=== PATIENT | female | born 1990 | race Caucasian/White ===

== ENCOUNTER 2018-07-19 10:02 | Emergency (ER) | payer OTHER, SELFPAY ==
--- OUTSIDE RECORDS SUMMARY | 2018-07-19 10:04 | XMS REPORT ---
:1990 [facility] Address [address] [place] [address] Dr. Graves [address] [place] [id number] Care Team Providers Name Role Phone Unavailable Unavailable Unavailable Problems This patient has no known problems. Allergies, Adverse Reactions, Alerts This patient has no known allergies or adverse reactions. Medications This patient has no known medications.
[2018-07-19 10:48] LABS: Absolute Lymphocytes (CBC) 2.1 K/uL (0.7-4.9); Absolute Monocytes 0.6 K/uL (0.1-1.3); Basophils % 0.6 % (0-1.3); Eosinophils % 2.9 % (0-4.4); Hematocrit 42.7 % (36.0-45.0); Lymphocytes % 26.7 % (15.3-44.8); MPV 7.9 fL (7.6-11.3); Monocytes % 7.4 % (3.3-12.3); RBC Red Blood Cell Count 4.66 M/uL (3.86-4.86)
[2018-07-19] MEDS ORDERED: NA CHLORIDE 0.9% 1,000 ML ONE ×2 (10:49→11:43)
[2018-07-19] MEDS ORDERED: ONDANSETRON 4 MG/2 ML VIAL ONE (11:00)
[2018-07-19 11:15] LABS: ALT/SGPT 26 U/L (12-78); AST/SGOT 14 U/L (15-37); Alkaline Phosphatase 72 U/L (45-117); BUN Blood Urea Nitrogen 17 mg/dL (7-18); Bicarbonate 27 mmol/L (21-32); Bilirubin Direct < 0.1 mg/dL (0-0.2); Bilirubin Total 0.3 mg/dL (0.2-1.0); Glucose Level 101 mg/dL (74-106); Lipase 132 U/L (73-393); Potassium 4.3 mmol/L (3.5-5.1); Protein, Total 7.3 g/dL (6.4-8.2); Sodium Level 140 mmol/L (136-145)
--- NOTE | 2018-07-19 12:09 | ER ---
Nurse's Notes [facility] Name: Sirena Miller Age: 27 yrs Sex: Female : 1990 Arrival Date: 07/19/2018 Time: 10:04 Bed 6 Private MD: Diagnosis: Vomiting;Diarrhea, unspecified Presentation: 07/19 10:09 Presenting complaint: Patient states: For the past 2 weeks I have had vomiting and la1 diarrhea. Pt reports vomiting 1 or 2 times per day and about 6 episodes of diarrhea a day. Pt reports BP at home was low (80d/40s). Transition of care: patient was not received from another setting of care. Onset of symptoms was July 19, 2018. Risk Assessment: Do you want to hurt yourself or someone else? Patient reports no desire to harm self or others. Initial Sepsis Screen: Does the patient meet any 2 criteria? No. Patient's initial sepsis screen is negative. Does the patient have a suspected source of infection? No. Patient's initial sepsis screen is negative. Care prior to arrival: None. 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 - Social history:: Smoking status: Patient uses tobacco products, smokes one pack cigarettes per day. - Ebola Screening: : No symptoms or risks identified at this time. Screenin:20 Abuse screen: Denies threats or abuse. Nutritional screening: No deficits noted. aa5 Tuberculosis screening: No symptoms or risk factors identified. Fall Risk None identified. Assessment: 10:30 General: Appears comfortable, Behavior is calm, cooperative. Pain: Complains of pain in aa5 left lower quadrant Pain radiates to lower back Pain currently is 5 out of 10 on a pain scale. Quality of pain is described as sharp, Pain began 2-3 days ago. Is continuous. Neuro: Level of Consciousness is awake, alert, obeys commands, Oriented to person, place, time, situation. Cardiovascular: Heart tones S1 S2 present Rhythm is regular. Respiratory: Airway is patent Respiratory effort is even, unlabored, Respiratory pattern is regular, symmetrical, Breath sounds are clear bilaterally. GI: Abdomen is flat, non-distended, Bowel sounds present X 4 quads. Abd is soft and non tender X 4 quads. Reports diarrhea, bloody stool, nausea, vomiting. : No signs and/or symptoms were reported regarding the genitourinary system. EENT: No signs and/or symptoms were reported regarding the EENT system. Derm: Skin is pink, warm \T\ dry. Musculoskeletal: Range of motion: intact in all extremities. 10:45 Reassessment: Pt notified of wait time for lab results, pt verbalized understanding. Pt aa5 requesting nausea medication at this time, CYBER DEFENSE FORENSICS ANALYST was notified. . 10:56 Reassessment: Patient is alert, oriented x 3, equal unlabored respirations, skin aa5 warm/dry/pink. Pt sitting up in bed. Bed in low position, side rail x 1, call ocampo within reach . 11:25 Reassessment: CYBER DEFENSE FORENSICS ANALYST at bedside discussing lab results and plan of care with patient at aa5 this time. . 11:35 Reassessment: Patient is alert, oriented x 3, equal unlabored respirations, skin aa5 warm/dry/pink. 2nd NS bolus infusing at this time. CYBER DEFENSE FORENSICS ANALYST states pt will be d/c'd home after 2nd NS bolus, pt notified and verbalized understanding. Pt sitting up in bed, eating chips, pt tolerating well. . Vital Signs: 10:12 BP 112 / 75; Pulse 85; Resp 18; Temp 97.7; Pulse Ox 98% on R/A; Weight 54.43 kg; Height la1 5 ft. 3 in. (160.02 cm); 10:50 BP 113 / 60 Supine; Pulse 54; Resp 16 S; Pulse Ox 100% on R/A; aa5 10:52 BP 112 / 68 Sitting; Pulse 56; aa5 10:54 BP 116 / 70 Standing; Pulse 62; aa5 12:16 BP 115 / 69; Pulse 63; Resp 16 S; Pulse Ox 100% on R/A; jl7 10:12 Body Mass Index 21.26 (54.43 kg, 160.02 cm) la1 10:54 Pt denied any dizziness during orthostatics, NS bolus paused during orthostatics, CYBER DEFENSE FORENSICS ANALYST aa5 notified of orthostatics. ED Course: 10:04 Patient arrived in ED. as 10:11 Triage completed. la1 10:12 Arm band placed on left wrist. la1 10:12 Patient has correct armband on for positive identification. Placed in gown. Bed in low aa5 position. Call light in reach. Side rails up X2. 10:14 Garret Looney NP is PHCP. pm1 10:14 Ney Conteh MD is Attending Physician. pm1 10:14 Ines Lopez RN is Primary Nurse. aa5 10:30 Urine collected: clean catch specimen, cloudy, derrick colored. jb1 10:35 Initial lab(s) drawn, by me, sent to lab. Inserted saline lock: 20 gauge in left aa5 antecubital area, using aseptic technique. Blood collected. 10:47 No provider procedures requiring assistance completed. aa5 12:16 IV discontinued, intact, bleeding controlled, No redness/swelling at site. Pressure jl7 dressing applied. Administered Medications: 10:44 Drug: NS 0.9% 1000 ml Route: IV; Rate: 1000 ml; Site: left antecubital; aa5 11:33 Follow up: IV Status: Completed infusion; IV Intake: 1000ml aa5 10:48 Drug: Zofran 4 mg Route: IVP; Site: left antecubital; aa5 10:56 Follow up: Response: No adverse reaction aa5 11:33 Drug: NS 0.9% 1000 ml Route: IV; Rate: 1000 ml; Site: left antecubital; aa5 12:09 Follow up: IV Status: Completed infusion; IV Intake: 1000ml aa5 Intake: 11:33 IV: 1000ml; Total: 1000ml. aa5 12:09 IV: 1000ml; Total: 2000ml. aa5 Outcome: 12:09 Discharge ordered by . pm1 12:16 Discharged to home ambulatory. jl7 12:16 Condition: stable 12:16 Discharge instructions given to patient, Instructed on discharge instructions, follow up and referral plans. medication usage, Demonstrated understanding of instructions, follow-up care, medications, Prescriptions given X 2. 12:18 Patient left the ED. jl7 Signatures: Rodolfo Pastor jb1 Anna Hoffman Audri, RN RN aa5 Boyd Bowman RN RN la1 Garret Looney NP CYBER DEFENSE FORENSICS ANALYST pm1 Jordan Dickens, RN RN jl7 Corrections: (The following items were deleted from the chart) 10:58 10:30 Pain: Complains of pain in left lower quadrant Pain radiates to lower back Pain aa5 currently is 8 out of 10 on a pain scale. Quality of pain is described as sharp, Pain began 2-3 days ago. Is continuous, aa5
--- NOTE | 2018-07-19 12:09 | EDPHYS ---
Physician Documentation [facility] Name: Sirena Miller Age: 27 yrs Sex: Female : 1990 Arrival Date: 07/19/2018 Time: 10:04 Bed 6 Private MD: ED Physician Ney Conteh HPI: 07/19 10:54 This 27 yrs old Female presents to ER via Ambulatory with complaints of pm1 Vomiting/Diarrhea. 10:54 The patient presents to the emergency department with nausea, vomiting, 1-2 times per pm1 day, diarrhea, 6 times per day. Onset: The symptoms/episode began/occurred 2 week(s) ago. Possible causes: unknown. The symptoms are aggravated by nothing. The symptoms are alleviated by nothing. Associated signs and symptoms: Pertinent positives: Abdominal cramping, Pertinent negatives: constipation, dysuria, fever. Severity of symptoms: in the emergency department the symptoms are unchanged. The patient has not experienced similar symptoms in the past. The patient has not recently seen a physician. 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 - Social history:: Smoking status: Patient uses tobacco products, smokes one pack cigarettes per day. - Ebola Screening: : No symptoms or risks identified at this time. ROS: 10:54 Constitutional: Negative for fever, chills, and weight loss, Eyes: Negative for injury, pm1 pain, redness, and discharge, ENT: Negative for injury, pain, and discharge, Neck: Negative for injury, pain, and swelling, Cardiovascular: Negative for chest pain, palpitations, and edema, Respiratory: Negative for shortness of breath, cough, wheezing, and pleuritic chest pain. 10:54 Back: Negative for injury and pain, : Negative for injury, bleeding, discharge, and swelling, MS/Extremity: Negative for injury and deformity, Skin: Negative for injury, rash, and discoloration, Neuro: Negative for headache, weakness, numbness, tingling, and seizure. 10:54 Abdomen/GI: Positive for nausea, vomiting, and diarrhea, abdominal cramps, Negative for hematemesis, black/tarry stool, rectal bleeding. Exam: 10:54 Constitutional: This is a well developed, well nourished patient who is awake, alert, pm1 and in no acute distress. Head/Face: Normocephalic, atraumatic. Eyes: Pupils equal round and reactive to light, extra-ocular motions intact. Lids and lashes normal. Conjunctiva and sclera are non-icteric and not injected. Cornea within normal limits. Periorbital areas with no swelling, redness, or edema. ENT: Nares patent. No nasal discharge, no septal abnormalities noted. Tympanic membranes are normal and external auditory canals are clear. Oropharynx with no redness, swelling, or masses, exudates, or evidence of obstruction, uvula midline. Mucous membranes moist. Neck: Trachea midline, no thyromegaly or masses palpated, and no cervical lymphadenopathy. Supple, full range of motion without nuchal rigidity, or vertebral point tenderness. No Meningismus. Chest/axilla: Normal chest wall appearance and motion. Nontender with no deformity. No lesions are appreciated. Cardiovascular: Regular rate and rhythm with a normal S1 and S2. No gallops, murmurs, or rubs. Normal PMI, no JVD. No pulse deficits. Respiratory: Lungs have equal breath sounds bilaterally, clear to auscultation and percussion. No rales, rhonchi or wheezes noted. No increased work of breathing, no retractions or nasal flaring. 10:54 Back: No spinal tenderness. No costovertebral tenderness. Full range of motion. Skin: Warm, dry with normal turgor. Normal color with no rashes, no lesions, and no evidence of cellulitis. MS/ Extremity: Pulses equal, no cyanosis. Neurovascular intact. Full, normal range of motion. 10:54 Abdomen/GI: Inspection: abdomen appears normal, Bowel sounds: normal, Palpation: abdomen is soft and non-tender, in all quadrants, mass, is not appreciated, rebound tenderness, is not appreciated. 10:54 Neuro: Orientation: is normal, Motor: is normal, moves all fours. Vital Signs: 10:12 BP 112 / 75; Pulse 85; Resp 18; Temp 97.7; Pulse Ox 98% on R/A; Weight 54.43 kg; Height la1 5 ft. 3 in. (160.02 cm); 10:50 BP 113 / 60 Supine; Pulse 54; Resp 16 S; Pulse Ox 100% on R/A; aa5 10:52 BP 112 / 68 Sitting; Pulse 56; aa5 10:54 BP 116 / 70 Standing; Pulse 62; aa5 12:16 BP 115 / 69; Pulse 63; Resp 16 S; Pulse Ox 100% on R/A; jl7 10:12 Body Mass Index 21.26 (54.43 kg, 160.02 cm) la1 10:54 Pt denied any dizziness during orthostatics, NS bolus paused during orthostatics, HUMAN RESOURCES EXECUTIVE ASSISTANT aa5 notified of orthostatics. MDM: 10:21 Patient medically screened. pm1 10:54 Data reviewed: vital signs. Data interpreted: Pulse oximetry: on room air is 98 %. pm1 Interpretation: normal. 11:18 ED course: Patient's vital signs stable. Orthostatics within normal limits. pm1 11:26 Counseling: I had a detailed discussion with the patient and/or guardian regarding: the pm1 historical points, exam findings, and any diagnostic results supporting the discharge/admit diagnosis, lab results, the need for outpatient follow up, to return to the emergency department if symptoms worsen or persist or if there are any questions or concerns that arise at home. 11:29 ED course: Patient feels better after NS 1 liter infusion. Requested additional IV pm1 fluids. Patient is currently eating snack food without any difficulty. 07/19 10:31 Order name: Urine Dipstick--Ancillary (enter results) 07/19 10:31 Order name: Urine --Ancillary (enter results) 07/19 10:33 Order name: Basic Metabolic Panel; Complete Time: 11:18 pm07/19 10:33 Order name: CBC with Diff; Complete Time: 11:18 pm07/19 10:33 Order name: Creatinine for Radiology; Complete Time: 11:18 pm07/19 10:33 Order name: Hepatic Function; Complete Time: 11:18 pm07/19 10:33 Order name: Lipase; Complete Time: 11:18 pm07/19 10:33 Order name: IV Saline Lock; Complete Time: 10:44 pm1 07/19 10:33 Order name: Labs collected and sent; Complete Time: 10:44 pm1 03/03 10:33 Order name: Urine Dipstick-Ancillary (obtain specimen); Complete Time: 10:35 pm1 07/19 10:33 Order name: Urine Test (obtain specimen); Complete Time: 10:34 pm1 07/19 10:35 Order name: Orthostatic Blood Pressure; Complete Time: 10:56 pm1 Administered Medications: 10:44 Drug: NS 0.9% 1000 ml Route: IV; Rate: 1000 ml; Site: left antecubital; aa5 11:33 Follow up: IV Status: Completed infusion; IV Intake: 1000ml aa5 10:48 Drug: Zofran 4 mg Route: IVP; Site: left antecubital; aa5 10:56 Follow up: Response: No adverse reaction aa5 11:33 Drug: NS 0.9% 1000 ml Route: IV; Rate: 1000 ml; Site: left antecubital; aa5 12:09 Follow up: IV Status: Completed infusion; IV Intake: 1000ml aa5 Disposition: 17:09 Co-signature as Attending Physician, Ney Conteh MD. Disposition: 07/19/18 12:09 Discharged to Home. Impression: Vomiting, Diarrhea, unspecified. - Condition is Stable. - Discharge Instructions: Food Choices to Help Relieve Diarrhea, Adult, Diarrhea, Adult, Nausea and Vomiting, Adult, [id number]. - Prescriptions for Bentyl 20 mg Oral Tablet - take 1 tablet by ORAL route every 6 hours As needed; 20 tablet. Zofran 4 mg Oral Tablet - take 1 tablet by ORAL route every 12 hours As needed; 20 tablet. - Medication Reconciliation Form, Thank You Letter, Antibiotic Education, Prescription Opioid Use form. - Follow up: Emergency Department; When: As needed; Reason: Worsening of condition. Follow up: Private Physician; When: 2 - 3 days; Reason: Recheck today's complaints, Continuance of care, Re-evaluation by your physician. - Problem is new. - Symptoms have improved. Signatures: Dispatcher [employer] EDMS Ines Lopez RN RN aa5 Boyd Bowman RN RN la1 Garret Looney, HUMAN RESOURCES EXECUTIVE ASSISTANT HUMAN RESOURCES EXECUTIVE ASSISTANT pm1 Jordan Dickens RN RN jl7 Ney Conteh MD MD gs Corrections: (The following items were deleted from the chart) 12:18 12:09 07/19/2018 12:09 Discharged to Home. Impression: Vomiting; Diarrhea, unspecified. jl7 Condition is Stable. Discharge Instructions: Food Choices to Help Relieve Diarrhea, Adult, Diarrhea, Adult, Nausea and Vomiting, Adult, [id number]. Prescriptions for Bentyl 20 mg Oral Tablet - take 1 tablet by ORAL route every 6 hours As needed; 20 tablet, Zofran 4 mg Oral Tablet - take 1 tablet by ORAL route every 12 hours As needed; 20 tablet. and Forms are Medication Reconciliation Form, Thank You Letter, Antibiotic Education, Prescription Opioid Use. Follow up: Emergency Department; When: As needed; Reason: Worsening of condition. Follow up: Private Physician; When: 2 - 3 days; Reason: Recheck today's complaints, Continuance of care, Re-evaluation by your physician. Problem is new. Symptoms have improved. pm1
[2018-07-19 12:22] VITALS: TEMP 97.7
[2018-07-19 12:23] VITALS: O2SAT 100
[2018-07-19 12:26] VITALS: BP 115/69
[2018-07-19 13:32] LABS: Urine Blood 2+ (NEG); Urine Glucose NEGATIVE (NEG); Urine Protein NEGATIVE (NEG); Urine Specific Gravity 1.025 (1.005-1.030)
== END 2018-07-19 12:18 | disposition home or self-care (01) ==
LOC: ER 10:02
DX: R19.7 Diarrhea, unspecified (principal); F17.210 Nicotine dependence, cigarettes, uncomplicated; Z88.0 Allergy status to penicillin
CPT/HCPCS: 36415; 80048; 80076; 81003; 81025; 83690; 85025; 96361; 96374; 99284; J2405; J7030

== ENCOUNTER 2018-11-23 15:39 | Emergency (ER) | payer SELFPAY ==
--- OUTSIDE RECORDS SUMMARY | 2018-11-23 15:42 | XMS REPORT ---
:1990 [facility] Address [address] [place] [address] Dr. Graves [address] [place] [id number] Care Team Providers Name Role Phone Unavailable Unavailable Unavailable Problems This patient has no known problems. Allergies, Adverse Reactions, Alerts This patient has no known allergies or adverse reactions. Medications This patient has no known medications.
[2018-11-23 17:21] LABS: Urine Blood NEGATIVE (NEG); Urine Glucose NEGATIVE (NEG); Urine Protein NEGATIVE (NEG); Urine pH 6.5 (5.0-7.0)
[2018-11-23 17:30] LABS: Urine Bacteria <20 /HPF (<20); Urine Culture Reflex Order NOT NEEDED; Urine RBC <5 /HPF (NONE SEEN)
--- NOTE | 2018-11-23 17:31 | EDPHYS ---
Physician Documentation [facility] Name: Sirena Miller Age: 28 yrs Sex: Female : 1990 Arrival Date: 11/23/2018 Time: 15:48 Bed 27 Private MD: ED Physician Erwin Hadley HPI: 11/23 16:27 This 28 yrs old Female presents to ER via Ambulatory with complaints of jr8 Cough, Sore Throat. 16:27 The patient or guardian reports cough, that is intermittent, described as mild, with no jr8 sputum. Onset: The symptoms/episode began/occurred gradually, 3 day(s) ago. Severity of symptoms: At their worst the symptoms were mild. Modifying factors: The symptoms are alleviated by nothing, the symptoms are aggravated by nothing. Associated signs and symptoms: Pertinent positives: chest pain. The patient has not experienced similar symptoms in the past. The patient has not recently seen a physician. also complains of low back pain and frequent urination . 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 - Social history:: Smoking status: Patient uses tobacco products, smokes one-half pack cigarettes per day. - Ebola Screening: : No symptoms or risks identified at this time. ROS: 16:27 Eyes: Negative for injury, pain, redness, and discharge, Neck: Negative for injury, jr8 pain, and swelling, Abdomen/GI: Negative for abdominal pain, nausea, vomiting, diarrhea, and constipation, Back: Negative for injury and pain, MS/Extremity: Negative for injury and deformity, Skin: Negative for injury, rash, and discoloration, Neuro: Negative for headache, weakness, numbness, tingling, and seizure. 16:27 ENT: Positive for sore throat, Negative for drainage from ear(s), ear pain, rhinorrhea, sinus congestion, sinus pain, difficulty swallowing, difficulty handling secretions, hoarseness. 16:27 Cardiovascular: Positive for chest pain, with cough. 16:27 Respiratory: Positive for cough, with no reported sputum, Negative for shortness of breath, sputum production, wheezing. 16:27 : Positive for urinary symptoms. Exam: 16:27 Constitutional: This is a well developed, well nourished patient who is awake, alert, jr8 and in no acute distress. Eyes: Pupils equal round and reactive to light, extra-ocular motions intact. Lids and lashes normal. Conjunctiva and sclera are non-icteric and not injected. Cornea within normal limits. Periorbital areas with no swelling, redness, or edema. ENT: Nares patent. No nasal discharge, no septal abnormalities noted. Tympanic membranes are normal and external auditory canals are clear. Oropharynx with no redness, swelling, or masses, exudates, or evidence of obstruction, uvula midline. Mucous membranes moist. Neck: Trachea midline, no thyromegaly or masses palpated, and no cervical lymphadenopathy. Supple, full range of motion without nuchal rigidity, or vertebral point tenderness. No Meningismus. Chest/axilla: Normal chest wall appearance and motion. Nontender with no deformity. No lesions are appreciated. Cardiovascular: Regular rate and rhythm with a normal S1 and S2. No gallops, murmurs, or rubs. Normal PMI, no JVD. No pulse deficits. Respiratory: Lungs have equal breath sounds bilaterally, clear to auscultation and percussion. No rales, rhonchi or wheezes noted. No increased work of breathing, no retractions or nasal flaring. Abdomen/GI: Soft, non-tender, with normal bowel sounds. No distension or tympany. No guarding or rebound. No evidence of tenderness throughout. Back: No spinal tenderness. No costovertebral tenderness. Full range of motion. Skin: Warm, dry with normal turgor. Normal color with no rashes, no lesions, and no evidence of cellulitis. MS/ Extremity: Pulses equal, no cyanosis. Neurovascular intact. Full, normal range of motion. Neuro: Awake and alert, GCS 15, oriented to person, place, time, and situation. Cranial nerves II-XII grossly intact. Motor strength 5/5 in all extremities. Sensory grossly intact. Cerebellar exam normal. Normal gait. Vital Signs: 15:56 BP 119 / 65; Pulse 100; Resp 18; Temp 98.9(O); Pulse Ox 100% on R/A; Weight 54.43 kg aa5 (R); Height 5 ft. 4 in. (162.56 cm) (R); Pain 7/10; 17:35 BP 116 / 66; Pulse 96; Resp 16; Temp 98.5; Pulse Ox 100% ; rv 15:56 Body Mass Index 20.60 (54.43 kg, 162.56 cm) aa5 MDM: 16:13 Patient medically screened. jr8 17:30 Data reviewed: vital signs, nurses notes, lab test result(s), and as a result, I will jr8 discharge patient. Data interpreted: Pulse oximetry: on room air is 100 %. Interpretation: normal. Counseling: I had a detailed discussion with the patient and/or guardian regarding: the historical points, exam findings, and any diagnostic results supporting the discharge/admit diagnosis, lab results, the need for outpatient follow up, a family practitioner, to return to the emergency department if symptoms worsen or persist or if there are any questions or concerns that arise at home. 11/23 16:22 Order name: Urine Microscopic Only; Complete Time: 17:31 ss 11/23 16:33 Order name: Urine Dipstick--Ancillary (enter results); Complete Time: 17:29 em1 11/23 16:22 Order name: Urine Dipstick-Ancillary (obtain specimen); Complete Time: 16:31 ss 11/23 16:33 Order name: Urine --Ancillary (enter results); Complete Time: 17:29 em1 11/23 16:33 Order name: Urine Test (obtain specimen); Complete Time: 16:33 em1 Administered Medications: No medications were administered Disposition: 18:59 Co-signature as Attending Physician, Erwin Hadley MD Available for consultation at ps1 all times . Disposition: 11/23/18 17:30 Discharged to Home. Impression: Acute upper respiratory infection, unspecified. - Condition is Stable. - Discharge Instructions: Upper Respiratory Infection, Adult. - Prescriptions for Tessalon Perles 100 mg Oral Capsule - take 1 capsule by ORAL route every 8 hours As needed; 15 capsule. Medrol (Gerald) 4 mg Oral Tablets, Dose Pack - take 1 tablet by ORAL route as directed - follow package instructions; 1 packet. Guaifenesin AC 10- 100 mg/5 mL Oral Liquid - take 10 milliliter by ORAL route every 4 hours As needed; 240 milliliter. - Medication Reconciliation Form, Thank You Letter, Antibiotic Education, Prescription Opioid Use form. - Follow up: Private Physician; When: 5 - 6 days; Reason: Recheck today's complaints, Continuance of care, Re-evaluation by your physician. - Problem is new. - Symptoms have improved. Signatures: Dispatcher [employer] Jm Morse em1 Ines Lopez, RN RN aa5 Keyana Galicia RN RN ss Arley Godoy PA PA jr8 Erwin Hadley MD MD ps1 Vicente, Ronaldo, RN RN rv Corrections: (The following items were deleted from the chart) 17:36 17:30 11/23/2018 17:30 Discharged to Home. Impression: Acute upper respiratory rv infection, unspecified. Condition is Stable. Forms are Medication Reconciliation Form, Thank You Letter, Antibiotic Education, Prescription Opioid Use. Follow up: Private Physician; When: 5 - 6 days; Reason: Recheck today's complaints, Continuance of care, Re-evaluation by your physician. Problem is new. Symptoms have improved. jr8
--- NOTE | 2018-11-23 17:31 | ER ---
Nurse's Notes [facility] Name: Sirena Miller Age: 28 yrs Sex: Female : 1990 Arrival Date: 11/23/2018 Time: 15:48 Bed 27 Private MD: Diagnosis: Acute upper respiratory infection, unspecified Presentation: 11/23 15:54 Presenting complaint: Patient states: cough, sore throat, and headache that began 2-3 aa5 days ago. Transition of care: patient was not received from another setting of care. Onset of symptoms was November 2018. Risk Assessment: Do you want to hurt yourself or someone else? Patient reports no desire to harm self or others. Initial Sepsis Screen: Does the patient meet any 2 criteria? No. Patient's initial sepsis screen is negative. Does the patient have a suspected source of infection?. Care prior to arrival: None. 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 - Social history:: Smoking status: Patient uses tobacco products, smokes one-half pack cigarettes per day. - Ebola Screening: : No symptoms or risks identified at this time. Screenin:06 Abuse screen: Denies threats or abuse. Denies injuries from another. Nutritional rv screening: No deficits noted. Tuberculosis screening: No symptoms or risk factors identified. Fall Risk None identified. Assessment: 17:03 General: Appears in no apparent distress. comfortable, Behavior is calm, cooperative. rv Pain: Pain: Complains of pain in head. 17:05 Neuro: Level of Consciousness is awake, alert, obeys commands, Oriented to person, rv place, time, situation, Reports headache. Cardiovascular: Patient's skin is warm and dry. Respiratory: Airway is patent Respiratory effort is even, Breath sounds are clear bilaterally. GI: No signs and/or symptoms were reported involving the gastrointestinal system. : No signs and/or symptoms were reported regarding the genitourinary system. EENT: Throat is clear. Derm: Skin is intact. Musculoskeletal: No signs and/or symptoms reported regarding the musculoskeletal system. Vital Signs: 15:56 BP 119 / 65; Pulse 100; Resp 18; Temp 98.9(O); Pulse Ox 100% on R/A; Weight 54.43 kg aa5 (R); Height 5 ft. 4 in. (162.56 cm) (R); Pain 7/10; 17:35 BP 116 / 66; Pulse 96; Resp 16; Temp 98.5; Pulse Ox 100% ; rv 15:56 Body Mass Index 20.60 (54.43 kg, 162.56 cm) aa5 ED Course: 15:48 Patient arrived in ED. rg4 15:55 Triage completed. aa5 15:55 Arm band placed on. aa5 16:12 Scotty Johnson, MARJORIE is Primary Nurse. rv 16:13 Arley Godoy PA is PHCP. jr8 16:13 Erwin Hadley MD is Attending Physician. jr8 17:06 Patient has correct armband on for positive identification. Bed in low position. Call rv light in reach. Side rails up X 1. Pulse ox on. NIBP on. 17:35 No provider procedures requiring assistance completed. Patient did not have IV access rv during this emergency room visit. Administered Medications: No medications were administered Outcome: 17:30 Discharge ordered by . jr8 17:35 Discharged to home ambulatory. rv 17:35 Condition: good 17:35 Discharge instructions given to patient, Instructed on discharge instructions, follow up and referral plans. medication usage, Demonstrated understanding of instructions, follow-up care, medications, Prescriptions given X 3. 17:36 Patient left the ED. rv Signatures: Ines Lopez, RN RN aa5 Arley Godoy PA PA jr8 Anya Hinojosa rg4 Scotty Johnson, MARJORIE RN rv Corrections: (The following items were deleted from the chart) 17:06 17:03 Pain: rv rv
[2018-11-23 19:14] VITALS: BP 119/65; TEMP 98.9; O2SAT 100
== END 2018-11-23 17:36 | disposition home or self-care (01) ==
LOC: ER 15:39
DX: J06.9 Acute upper respiratory infection, unspecified (principal); J45.909 Unspecified asthma, uncomplicated; F17.210 Nicotine dependence, cigarettes, uncomplicated; Z88.0 Allergy status to penicillin
CPT/HCPCS: 81003; 81015; 81025; 99283

== ENCOUNTER 2019-06-05 12:33 | Emergency (ER) | payer SELFPAY ==
--- OUTSIDE RECORDS SUMMARY | 2019-06-05 12:35 | XMS REPORT ---
:1990 Author Organization [facility] Address [address] [place] [address] Dr. Graves [address] [place] [id number] Care Team Providers Name Role Phone Unavailable Unavailable Unavailable Problems This patient has no known problems. Allergies, Adverse Reactions, Alerts This patient has no known allergies or adverse reactions. Medications This patient has no known medications.
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
--- NOTE | 2019-06-05 14:00 | ER ---
Nurse's Notes [facility] Name: Sirena Miller Age: 28 yrs Sex: Female : 1990 Arrival Date: 06/05/2019 Time: 12:39 Bed 14 Private MD: Diagnosis: Influenza due to identified novel influenza A virus Presentation: 06/05 13:03 Presenting complaint: Patient states: Pressure in bilateral ears, sore throat, fever, jl7 took Tylenol at 1130. Transition of care: patient was not received from another setting of care. Onset of symptoms was June 05, 2019. Risk Assessment: Do you want to hurt yourself or someone else? Patient reports no desire to harm self or others. Patient reports desire/thoughts of hurting themselves or someone else. Provider notified. Initial Sepsis Screen: Does the patient meet any 2 criteria? No. Patient's initial sepsis screen is negative. Does the patient have a suspected source of infection? No. Patient's initial sepsis screen is negative. Care prior to arrival: Medication(s) given: Tylenol. 13:03 Method Of Arrival: Ambulatory [facility] 13:03 Acuity: AUREA 4 jl7 Triage Assessment: 13:06 General: Appears in no apparent distress. uncomfortable, Behavior is calm, cooperative, jl7 appropriate for age. Pain: Complains of pain in sore throat Pain currently is 7 out of 10 on a pain scale. EENT: Throat is clear is reddened. Neuro: Level of Consciousness is awake, alert, obeys commands, Oriented to person, place, time, situation. Cardiovascular: Patient's skin is warm and dry. Respiratory: Airway is patent Respiratory effort is even, unlabored, Respiratory pattern is regular, symmetrical. Derm: Skin is pink, warm \T\ dry. 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 - Social history:: Smoking status: Patient reports the use of cigarette tobacco products, smokes one pack cigarettes per day. - Ebola Screening: : No symptoms or risks identified at this time. Screenin:58 Abuse screen: Denies threats or abuse. Denies injuries from another. Nutritional iw screening: No deficits noted. Tuberculosis screening: No symptoms or risk factors identified. Fall Risk None identified. Assessment: 14:00 General: Appears in no apparent distress. comfortable, Behavior is calm, cooperative. iw General: Reports fever for feeling ill for fatigue for. Pain: Complains of pain in throat, body aches. Neuro: Level of Consciousness is awake, alert, obeys commands, Oriented to person, place, time, situation, Moves all extremities. Full function. Cardiovascular: Capillary refill Patient's skin is warm and dry. Respiratory: Respiratory effort is even, unlabored, Respiratory pattern is regular, symmetrical. Derm: Skin is intact, is healthy with good turgor. Musculoskeletal: Range of motion: intact in all extremities. Vital Signs: 13:06 BP 106 / 70; Pulse 89; Resp 19 S; Temp 98.4(O); Pulse Ox 96% on R/A; Weight 66.68 kg jl7 (R); Height 5 ft. 3 in. (160.02 cm) (R); Pain 7/10; 13:06 Body Mass Index 26.04 (66.68 kg, 160.02 cm) jl7 ED Course: 12:39 Patient arrived in ED. mr 12:39 Boyd Bowman F[facility]-C [facility]. la1 12:39 Devi Styles MD is Attending Physician. la1 13:03 Jordan Dickens RN is Primary Nurse. jl7 13:06 Triage completed. jl7 13:06 Arm band placed on right wrist. jl7 14:21 Primary Nurse role handed off by Jordan Dickens RN jl7 14:30 Patient has correct armband on for positive identification. iw 14:58 No provider procedures requiring assistance completed. Patient did not have IV access iw during this emergency room visit. 14:59 Kina Lynch, MARJORIE is Primary Nurse. iw Administered Medications: No medications were administered Outcome: 13:59 Discharge ordered by . la1 14:58 Discharged to home ambulatory, with family. iw 14:58 Condition: good 14:58 Discharge instructions given to patient, Instructed on discharge instructions, follow up and referral plans. Demonstrated understanding of instructions, follow-up care, medications, Prescriptions given X 1. 14:59 Patient left the ED. iw Signatures: Kimberly Lau Irene, RN RN iw Boyd Bowman, CHAIN REPAIRER-C CHAIN REPAIRER-Cla1 Jordan Dickens RN RN jl7
--- NOTE | 2019-06-05 14:00 | EDPHYS ---
Physician Documentation [facility] Name: Sirena Miller Age: 28 yrs Sex: Female : 1990 Arrival Date: 06/05/2019 Time: 12:39 Bed 14 Private MD: ED Physician Devi Styles HPI: 06/05 13:23 This 28 yrs old Female presents to ER via Ambulatory with complaints of Flu la1 Symptoms. 13:23 The patient reports fever, that was measured at 101 degrees Fahrenheit. Onset: The la1 symptoms/episode began/occurred this morning. Modifying factors: The patient has had contact with sick. Associated signs and symptoms: Pertinent positives: chills, earache, headache, myalgias. Severity of symptoms: At their worst the symptoms were mild. The patient has not experienced similar symptoms in the past. pt whole family recently had the flu. 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 - Social history:: Smoking status: Patient reports the use of cigarette tobacco products, smokes one pack cigarettes per day. - Ebola Screening: : No symptoms or risks identified at this time. ROS: 13:24 ENT: Negative for injury, pain, and discharge, Neck: Negative for injury, pain, and la1 swelling, Cardiovascular: Negative for chest pain, palpitations, and edema, Respiratory: Negative for shortness of breath, cough, wheezing, and pleuritic chest pain, Abdomen/GI: Negative for abdominal pain, nausea, vomiting, diarrhea, and constipation, Back: Negative for injury and pain, : Negative for injury, bleeding, discharge, and swelling, MS/Extremity: Negative for injury and deformity, Skin: Negative for injury, rash, and discoloration. 13:24 Constitutional: Positive for body aches, chills, fever, malaise. 13:24 Neuro: Positive for headache. Exam: 13:25 Constitutional: This is a well developed, well nourished patient who is awake, alert, la1 and in no acute distress. Head/Face: Normocephalic, atraumatic. Eyes: Pupils equal round and reactive to light, extra-ocular motions intact. ENT: Nares patent. No nasal discharge, no septal abnormalities noted. Tympanic membranes are normal and external auditory canals are clear. Oropharynx with no redness, swelling, or masses, exudates, or evidence of obstruction, uvula midline. Mucous membranes moist. Neck: Trachea midline. No Meningismus. Chest/axilla: Normal chest wall appearance and motion. Nontender with no deformity. No lesions are appreciated. Cardiovascular: Regular rate and rhythm with a normal S1 and S2. Respiratory: Lungs have equal breath sounds bilaterally, clear to auscultation No rales, rhonchi or wheezes noted. No increased work of breathing, no retractions or nasal flaring. Abdomen/GI: Soft, non-tender, with normal bowel sounds. No distension or tympany. No guarding or rebound. No evidence of tenderness throughout. Back: No spinal tenderness. No costovertebral tenderness. Full range of motion. Skin: Warm, dry with normal turgor. Normal color with no rashes, no lesions, and no evidence of cellulitis. MS/ Extremity: Pulses equal, no cyanosis. Neurovascular intact. Full, normal range of motion. Neuro: Awake and alert, GCS 15, oriented to person, place, time, and situation. Normal gait. Vital Signs: 13:06 BP 106 / 70; Pulse 89; Resp 19 S; Temp 98.4(O); Pulse Ox 96% on R/A; Weight 66.68 kg jl7 (R); Height 5 ft. 3 in. (160.02 cm) (R); Pain 7/10; 13:06 Body Mass Index 26.04 (66.68 kg, 160.02 cm) jl7 MDM: 13:07 Patient medically screened. la1 13:58 Data reviewed: vital signs, nurses notes, lab test result(s), and as a result, I will la1 discharge patient. Data interpreted: Pulse oximetry: on room air is 96 %. Interpretation: normal. Test interpretation: by ED physician or midlevel provider:. Counseling: I had a detailed discussion with the patient and/or guardian regarding: the historical points, exam findings, and any diagnostic results supporting the discharge/admit diagnosis, lab results, the need for outpatient follow up, a family practitioner. 06/05 13:08 Order name: Flu; Complete Time: 13:55 [facility] 06/05 13:08 Order name: Strep [facility] 06/05 13:55 Order name: Throat Culture EDMS Administered Medications: No medications were administered Disposition: 15:25 Co-signature as Attending Physician, Devi Styles MD. ma2 Disposition: 06/05/19 13:59 Discharged to Home. Impression: Influenza due to identified novel influenza A virus. - Condition is Stable. - Discharge Instructions: Fever, Adult, Influenza, Adult. - Prescriptions for Tamiflu 75 mg Oral Capsule - take 1 capsule by ORAL route every 12 hours for 5 days; 10 capsule. - Family Work Release, Medication Reconciliation Form, Thank You Letter form. - Follow up: Private Physician; When: 2 - 3 days; Reason: Recheck today's complaints, Re-evaluation by your physician. - Problem is new. - Symptoms have improved. Signatures: Dispatcher [employer] EDMS Kina Lynch RN RN iw Attema, Lee, KAILEY-C RACE STARTER-Cla1 Jordan Dickens RN RN jl7 Alzahri, Mohammad, MD MD ma2 Corrections: (The following items were deleted from the chart) 14:59 13:59 06/05/2019 13:59 Discharged to Home. Impression: Influenza due to identified iw novel influenza A virus. Condition is Stable. Forms are Medication Reconciliation Form, Thank You Letter, Antibiotic Education, Prescription Opioid Use. Follow up: Private Physician; When: 2 - 3 days; Reason: Recheck today's complaints, Re-evaluation by your physician. Problem is new. Symptoms have improved. la1
[2019-06-05 15:07] VITALS: BP 106/70; TEMP 98.4; O2SAT 96
== END 2019-06-05 14:59 | disposition home or self-care (01) ==
LOC: ER 12:33
DX: J10.1 Influenza due to other identified influenza virus with other respiratory manifestations (principal); F17.210 Nicotine dependence, cigarettes, uncomplicated; Z88.0 Allergy status to penicillin
CPT/HCPCS: 87070; 87081; 87804; 99282

== ENCOUNTER 2019-06-08 12:13 | Emergency (ER) | payer SELFPAY ==
--- OUTSIDE RECORDS SUMMARY | 2019-06-08 12:16 | XMS REPORT ---
:1990 [facility] Address [address] [place] [address] Dr. Graves [address] [place] [id number] Care Team Providers Name Role Phone Unavailable Unavailable Unavailable Problems This patient has no known problems. Allergies, Adverse Reactions, Alerts This patient has no known allergies or adverse reactions. Medications This patient has no known medications.
--- NOTE | 2019-06-08 13:04 | EDPHYS ---
Physician Documentation [facility] Name: Sirena Miller Age: 28 yrs Sex: Female : 1990 Arrival Date: 06/08/2019 Time: 12:16 Bed 24 Private MD: ED Physician Devi Styles HPI: 06/08 13:02 This 28 yrs old Female presents to ER via Ambulatory with complaints of Cough ma2 - flu a+. 13:02 The patient or guardian reports cough. Onset: The symptoms/episode began/occurred ma2 gradually, 3 day(s) ago. Severity of symptoms: At their worst the symptoms were moderate, in the emergency department the symptoms are unchanged. Associated signs and symptoms: Pertinent negatives: diarrhea, nausea, rhinorrhea. The patient has experienced similar episodes in the past. 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 - Social history:: Patient/guardian denies using alcohol, street drugs, The patient lives with family, Smoking status: unknown. - Family history:: not pertinent. - Ebola Screening: : No symptoms or risks identified at this time. ROS: 13:02 Constitutional: Negative for fever, chills, and weight loss. ma2 13:02 All other systems are negative. Exam: 13:02 Constitutional: This is a well developed, well nourished patient who is awake, alert, ma2 and in no acute distress. Head/Face: Normocephalic, atraumatic. Eyes: Pupils equal round and reactive to light, extra-ocular motions intact. Lids and lashes normal. Conjunctiva and sclera are non-icteric and not injected. Cornea within normal limits. Periorbital areas with no swelling, redness, or edema. ENT: pahryngitis, otherwise Nares patent. No nasal discharge, no septal abnormalities noted. Tympanic membranes are normal and external auditory canals are clear. Oropharynx with no redness, swelling, or masses, exudates, or evidence of obstruction, uvula midline. Mucous membranes moist. Neck: Trachea midline, no thyromegaly or masses palpated, and no cervical lymphadenopathy. Supple, full range of motion without nuchal rigidity, or vertebral point tenderness. No Meningismus. Chest/axilla: Normal chest wall appearance and motion. Nontender with no deformity. No lesions are appreciated. Cardiovascular: Regular rate and rhythm with a normal S1 and S2. No gallops, murmurs, or rubs. Normal PMI, no JVD. No pulse deficits. Respiratory: Lungs have equal breath sounds bilaterally, clear to auscultation and percussion. No rales, rhonchi or wheezes noted. No increased work of breathing, no retractions or nasal flaring. Abdomen/GI: Soft, non-tender, with normal bowel sounds. No distension or tympany. No guarding or rebound. No evidence of tenderness throughout. MS/ Extremity: Pulses equal, no cyanosis. Neurovascular intact. Full, normal range of motion. Neuro: Awake and alert, GCS 15, oriented to person, place, time, and situation. Cranial nerves II-XII grossly intact. Motor strength 5/5 in all extremities. Sensory grossly intact. Cerebellar exam normal. Normal gait. Vital Signs: 12:18 BP 104 / 86; Pulse 86; Resp 20; Temp 98.1(O); Pulse Ox 100% ; Weight 66.68 kg; Height 5 sv ft. 3 in. (160.02 cm); 13:53 BP 110 / 78; Pulse 85; Resp 18; Temp 98; Pulse Ox 100% on R/A; mg2 12:18 Body Mass Index 26.04 (66.68 kg, 160.02 cm) sv MDM: 12:39 Patient medically screened. ma2 13:02 Differential Diagnosis: Bronchitis Upper Respiratory Infection Sinusitis Pharyngitis. ma2 Data reviewed: vital signs, nurses notes. Counseling: I had a detailed discussion with the patient and/or guardian regarding: the historical points, exam findings, and any diagnostic results supporting the discharge/admit diagnosis, the presence of at least one elevated blood pressure reading (>120/80) during this emergency department visit, the need for outpatient follow up. Medical screen evaluation completed. [facility] emergency medical condition absent. Response to treatment: the patient's symptoms have markedly improved after treatment. 06/08 12:20 Order name: Chest Pa And Lat (2 Views) XRAY sv Administered Medications: 13:52 Drug: Zithromax 500 mg Route: PO; mg2 13:52 Follow up: Response: No adverse reaction; Medication administered at discharge. mg2 Disposition: 06/08/19 13:04 Discharged to Home. Impression: Acute pharyngitis. - Condition is Stable. - Discharge Instructions: Pharyngitis. - Prescriptions for Tylenol- Codeine #3 300-30 mg Oral Tablet - take 2 tablet by ORAL route every 6 hours As needed; 30 tablet. Zithromax Z- Gerald 250 mg Oral Tablet - take 1 tablet by ORAL route as directed for 5 days Day 1 - take two (2) tablets one time. Day 2, 3, 4 , 5 take one (1) tablet once daily.; 6 tablet. Medrol (Gerald) 4 mg Oral Tablets, Dose Pack - take 1 tablet by ORAL route as directed - follow package instructions; 1 packet. - Medication Reconciliation Form, Thank You Letter, Antibiotic Education, Prescription Opioid Use form. - Follow up: Private Physician; When: Tomorrow; Reason: If symptoms return. Signatures: Dispatcher [employer] Azucena Tamez RN RN Devi Styles MD MD ma2 Willie Palm RN RN mg2 Corrections: (The following items were deleted from the chart) 13:55 13:04 06/08/2019 13:04 Discharged to Home. Impression: Acute pharyngitis. Condition is mg2 Stable. Forms are Medication Reconciliation Form, Thank You Letter, Antibiotic Education, Prescription Opioid Use. Follow up: Private Physician; When: Tomorrow; Reason: If symptoms return. ma2
--- NOTE | 2019-06-08 13:04 | ER ---
Nurse's Notes [facility] Name: Sirena Miller Age: 28 yrs Sex: Female : 1990 Arrival Date: 06/08/2019 Time: 12:16 Bed 24 Private MD: Diagnosis: Acute pharyngitis Presentation: 06/08 12:18 Presenting complaint: Patient states: seen here 06/05/19 dx with flu, today started sv having a productive cough and hemoptysis. Transition of care: patient was not received from another setting of care. Onset of symptoms was June 08, 2019. Care prior to arrival: None. 12:18 Method Of Arrival: Ambulatory sv 12:18 Acuity: AUREA 4 sv 13:00 Risk Assessment: Do you want to hurt yourself or someone else? Patient reports no mg2 desire to harm self or others. Initial Sepsis Screen: Does the patient meet any 2 criteria? No. Patient's initial sepsis screen is negative. Does the patient have a suspected source of infection? No. Patient's initial sepsis screen is negative. 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 - Social history:: Patient/guardian denies using alcohol, street drugs, The patient lives with family, Smoking status: unknown. - Family history:: not pertinent. - Ebola Screening: : No symptoms or risks identified at this time. Screenin:00 Abuse screen: Denies threats or abuse. Nutritional screening: No deficits noted. em Tuberculosis screening: No symptoms or risk factors identified. Fall Risk None identified. Assessment: 13:00 General: Appears in no apparent distress. comfortable, Behavior is calm, cooperative, em Reports diagnosed with flu, reports coughing up blood, fever only yesterday. Pain: Pain: Complains of pain in throat Pain currently is 6 out of 10 on a pain scale. Neuro: Level of Consciousness is awake, alert, obeys commands, Oriented to person, place, time, situation, Appropriate for age. Cardiovascular: Capillary refill < 3 seconds Patient's skin is warm and dry. Respiratory: Reports cough that is productive, Airway is patent Respiratory effort is even, unlabored, Respiratory pattern is regular, symmetrical, Breath sounds are clear bilaterally. EENT: Nares are clear Oral mucosa is moist. Throat is reddened. Derm: Skin is intact, is healthy with good turgor, Skin is pink, warm \T\ dry. Musculoskeletal: Capillary refill < 3 seconds, Range of motion: intact in all extremities. Vital Signs: 12:18 BP 104 / 86; Pulse 86; Resp 20; Temp 98.1(O); Pulse Ox 100% ; Weight 66.68 kg; Height 5 sv ft. 3 in. (160.02 cm); 13:53 BP 110 / 78; Pulse 85; Resp 18; Temp 98; Pulse Ox 100% on R/A; mg2 12:18 Body Mass Index 26.04 (66.68 kg, 160.02 cm) sv ED Course: 12:16 Patient arrived in ED. as 12:18 Triage completed. sv 12:19 Arm band placed on. sv 12:39 Devi Styles MD is Attending Physician. ma2 12:49 Antony Salas, RN is Primary Nurse. em 13:00 Patient has correct armband on for positive identification. Bed in low position. Call em light in reach. 13:13 Chest Pa And Lat (2 Views) XRAY In Process Unspecified. EDMS 13:24 No provider procedures requiring assistance completed. Patient did not have IV access em during this emergency room visit. Administered Medications: 13:52 Drug: Zithromax 500 mg Route: PO; mg2 13:52 Follow up: Response: No adverse reaction; Medication administered at discharge. mg2 Outcome: 13:04 Discharge ordered by . ma2 13:53 Discharged to home ambulatory. mg2 13:53 Condition: good 13:53 Discharge instructions given to patient, Instructed on discharge instructions, follow up and referral plans. medication usage, Demonstrated understanding of instructions, follow-up care, medications, Prescriptions given X 3. 13:55 Patient left the ED. mg2 Signatures: Dispatcher [employer] Azucena Tamez RN RN Antony Salas RN RN em Martinez, Amelia as Alzahri, Mohammad, MD MD ma2 Gardose, Michele, RN RN mg2 Corrections: (The following items were deleted from the chart) 12:20 12:18 Presenting complaint: Patient states: seen here yesterday dx with flu, today sv started having a productive cough and hemoptysis, sv
--- NOTE | 2019-06-08 13:18 | RAD REPORT ---
EXAM DESCRIPTION: Alyssia Alberts And Gia (2 Views)06/08/2019 1:13 pm CLINICAL HISTORY: Cough COMPARISON: None FINDINGS: The lungs appear clear of acute infiltrate. The heart is normal size IMPRESSION: No acute abnormalities displayed
[2019-06-08] MEDS ORDERED: AZITHROMYCIN 250 MG TAB ONE (13:29)
[2019-06-08 17:22] VITALS: O2SAT 100
[2019-06-08 17:24] VITALS: BP 110/78; TEMP 98
== END 2019-06-08 13:55 | disposition home or self-care (01) ==
LOC: ER 12:13
DX: J02.9 Acute pharyngitis, unspecified (principal); Z88.0 Allergy status to penicillin
CPT/HCPCS: 71046; 99283

== ENCOUNTER 2022-02-03 11:27 | Emergency (ER) | payer OTHER ==
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
[2022-02-03] MEDS ORDERED: HYDROCODONE/APAP 10/325 TAB ONE (12:07)
[2022-02-03] MEDS ORDERED: DIAZEPAM 5 MG TABLET ONE (12:07)
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
[2022-02-04 23:54] VITALS: BP 126/76; O2SAT 100
[2022-02-05 00:23] VITALS: TEMP 98.6
== END 2022-02-03 14:27 | disposition home or self-care (01) ==
LOC: ER 11:27
DX: S16.1XXA Strain of muscle, fascia and tendon at neck level, initial encounter (principal); S80.12XA Contusion of left lower leg, initial encounter; S20.219A Contusion of unspecified front wall of thorax, initial encounter
CPT/HCPCS: 70450; 71250; 72125; 99283

== ENCOUNTER → 2023-05-30 | Emergency (ER) | payer SELFPAY ==
[~2023-05-30] MED LIST: CEFTRIAXONE 500 MG/VIAL ONE; KETOROLAC 30 MG/ML INJ ONE; LIDOCAINE 1% MPF 5 ML VIAL ONE; NA CHLORIDE 0.9% 1,000 ML ONE; ONDANSETRON 4 MG/2 ML VIAL ONE
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
[2023-05-30 10:14] LABS: Absolute Lymphocytes (CBC) 2.1 K/uL (0.7-4.9); Hematocrit 43.8 % (36.0-45.0); Lymphocytes % 33.7 % (15.3-44.8); MCV 92.9 fL (80-100); MPV 8.1 fL (7.6-11.3); Platelets 208 thou/uL (152-406); RBC Red Blood Cell Count 4.71 M/uL (3.86-4.86)
[2023-05-30 10:18] LABS: Specific Gravity < 1.005 (1.005-1.030)
[2023-05-30 10:20] LABS: Specific Gravity < 1.005 (1.005-1.030); Urine Bacteria 20-50 /HPF (<20); Urine Bilirubin NEGATIVE (Negative); Urine Blood Negative (Negative); Urine Clarity Extremely Turbid (Clear); Urine Color Colorless (Yellow); Urine Glucose NEGATIVE (Negative); Urine Protein NEGATIVE (Negative); Urine RBC None Seen /HPF (None Seen); Urine Urobilinogen Normal (Normal); Urine pH 6.5 (5.0-7.0)
[2023-05-30 10:30] LABS: Albumin 4.2 g/dL (3.4-5.0); Bilirubin Total 0.6 mg/dL (0.2-1.0); Protein, Total 7.8 g/dL (6.4-8.2)
--- NOTE | 2023-05-30 10:40 | RAD REPORT ---
EXAM DESCRIPTION: CTAbdomen Pelvis W Contrast - 05/30/2023 10:23 am CLINICAL HISTORY: ABD PAIN COMPARISON: TRANSVAGINAL STUDY PROBE dated 11/09/2009 TECHNIQUE: CT of the abdomen and pelvis was performed. All CT scans are performed using dose optimization technique as appropriate and may include automated exposure control or mA/KV adjustment according to patient size. FINDINGS: Lower chest: No acute abnormality. Liver: No acute abnormality or suspicious lesions. Biliary: No biliary ductal dilatation. Stomach: No significant focal abnormality. Duodenum: No significant focal abnormality. Pancreas: No significant abnormality. Spleen: No significant abnormality. Adrenal: No suspicious lesions. Kidney/ureter: No hydronephrosis. No renal calculi. Retroperitoneum: No retroperitoneal adenopathy. Vascular: No aneurysm. Bowel: No significant focal abnormality. Normal appendix. Peritoneum: Small volume of pelvic free fluid. Bladder: Grossly unremarkable. Reproductive: Question arcuate uterus. Corpus luteal cyst in the right adnexa. Bones: No acute fracture. Other: n/a IMPRESSION: No acute intra-abdominal or pelvic finding. Normal appendix. Pelvic free fluid is likely physiologic. No renal or ureteral calculi.
--- NOTE | 2023-05-30 12:59 | ER ---
Nurse's Notes [facility] Name: Sirena Miller Age: 32 yrs Sex: Female : 1990 Arrival Date: 05/30/2023 Time: 09:28 Bed 13 Private MD: Diagnosis: Pelvic and perineal pain Presentation: 05/30 09:41 Chief complaint: Lower abdominal/pelvic pain that radiates to left flank x 1 week, hb urinary urgency and frequency with increased vaginal discharge x 3-4 days. Coronavirus screen: At this time, the client does not indicate any symptoms associated with coronavirus-19. Ebola Screen: No symptoms or risks identified at this time. Initial Sepsis Screen: Does the patient meet any 2 criteria? No. Patient's initial sepsis screen is negative. Does the patient have a suspected source of infection? No. Patient's initial sepsis screen is negative. Risk Assessment: Do you want to hurt yourself or someone else? Patient reports no desire to harm self or others. Onset of symptoms was May 23, 2023. 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 - Social history:: Smoking status: Patient denies any tobacco usage or history of. Screenin:21 [facility] ED Fall Risk Assessment (Adult) History of falling in the last 3 months, mb9 including since admission No falls in past 3 months (0 pts) Confusion or Disorientation No (0 pts) Intoxicated or Sedated No (0 pts) Impaired Gait No (0 pts) Mobility Assist Device Used No (0 pt) Altered Elimination No (0 pt) Score/Fall Risk Level 0 - 2 = Low Risk Oriented to surroundings, Maintained a safe environment, Educated pt \T\ family on fall prevention, incl call for assistance when getting out of bed. Abuse screen: Denies threats or abuse. Nutritional screening: No deficits noted. Tuberculosis screening: No symptoms or risk factors identified. Assessment: 10:00 General: Appears in no apparent distress. Behavior is calm, cooperative. Pain: mb9 Complains of pain in abdomen Pain radiates to left flank Quality of pain is described as throbbing, Pain began suddenly, Is continuous. Neuro: Hester Agitation-Sedation Scale (RASS): 0 - Alert and Calm Level of Consciousness is awake, alert, obeys commands, Oriented to person, place, time, situation, Appropriate for age. Cardiovascular: Patient's skin is warm and dry. Respiratory: Airway is patent Respiratory effort is even, unlabored, Respiratory pattern is regular, symmetrical, Breath sounds are clear bilaterally. GI: Abdomen is flat, non-distended, Bowel sounds present X 4 quads. Abd is soft Abdomen is tender to palpation X 4 quads. Reports nausea. : Reports urinary frequency. EENT: No signs and/or symptoms were reported regarding the EENT system. Derm: Skin is pink, warm \T\ dry. Musculoskeletal: Range of motion: intact in all extremities. 11:51 Reassessment: No changes from previously documented assessment. Patient and/or family mb9 updated on plan of care and expected duration. Pain level reassessed. Patient is alert, oriented x 3, equal unlabored respirations, skin warm/dry/pink. 13:05 Reassessment: Patient and/or family updated on plan of care and expected duration. Pain mb9 level reassessed. Patient is alert, oriented x 3, equal unlabored respirations, skin warm/dry/pink. Patient states feeling better. Patient states symptoms have improved. Vital Signs: 09:41 BP 142 / 83; Pulse 100; Resp 16; Temp 98.2(O); Pulse Ox 100% on R/A; Weight 59.87 kg; hb Height 5 ft. 2 in. ; Pain 8/10; 11:52 BP 116 / 68; Pulse 74; Resp 18; Pulse Ox 100% ; mb9 13:06 BP 110 / 72; Pulse 70; Resp 16; Pulse Ox 100% on R/A; mb9 09:41 Body Mass Index 24.14 (59.87 kg, 157.48 cm) hb 09:41 Pain Scale: Adult hb ED Course: 09:30 Patient arrived in ED. rg4 09:31 Negro Asencio MD is Attending Physician. ec2 09:44 Triage completed. hb 09:44 Arm band placed on. hb 09:52 Kimberly Crystal, RN is Primary Nurse. mb9 10:19 CMP Sent. mb9 10:19 Lipase Sent. mb9 10:19 Urinalysis w/ reflexes Sent. mb9 10:21 Placed in gown. Bed in low position. Call light in reach. Side rails up X 1. Client mb9 placed on continuous cardiac and pulse oximetry monitoring. NIBP monitoring applied. 10:24 CT Abd/Pelvis - IV Contrast Only In Process Unspecified. EDMS 13:06 No provider procedures requiring assistance completed. IV discontinued, intact, mb9 bleeding controlled, No redness/swelling at site. Pressure dressing applied. Administered Medications: 10:05 Drug: TORadol - Ketorolac IVP 15 mg IVP once Route: IVP; Site: right antecubital; mb9 12:09 Follow up: Response: No adverse reaction mb9 10:05 Drug: NS 0.9% IV 1000 ml IV at 1 bolus Per protocol; 1000 mL bolus Route: IV; Rate: 1 mb9 bolus; Site: right antecubital; 13:06 Follow up: Response: No adverse reaction; IV Status: Completed infusion mb9 10:08 Drug: Ondansetron IVP 4 mg IVP once; over 2 minutes Route: IVP; Site: right antecubital;mb9 12:09 Follow up: Response: No adverse reaction mb9 10:19 Not Given (Physician Discretion): ns 0.9% 1000 ml IV at 1 bolus Per protocol; 1000 mL mb9 bolus 10:36 Drug: Rocephin (cefTRIAXone) IM 500 mg IM once Route: IM; Site: right gluteus; mb9 12:09 Follow up: Response: No adverse reaction mb9 Medication: 10:21 VIS not applicable for this client. mb9 Outcome: 12:58 Discharge ordered by MD. ec2 13:06 Discharged to home ambulatory, mb9 13:06 Condition: stable 13:06 Discharge instructions given to patient, Instructed on discharge instructions, follow up and referral plans. Demonstrated understanding of instructions, follow-up care, medications, Prescriptions given X 1, 13:07 Patient left the ED. mb9 Signatures: Dispatcher [facility] Medina Clement RN RN hb Garcia, Rubi rg4 Kimberly Crystal RN RN mb9 AsencioNegro mcdermott, MD ec2
--- NOTE | 2023-05-30 12:59 | EDPHYS ---
Physician Documentation [facility] Name: Sirena Miller Age: 32 yrs Sex: Female : 1990 Arrival Date: 05/30/2023 Time: 09:28 Bed 13 Private MD: ED Physician Negro Asencio HPI: 05/30 10:21 This 32 yrs old Female presents to ER via Ambulatory with complaints of ec2 Pelvic Pain, Back Pain. 10:21 Patient arrives today for evaluation of lower abdominal pain, left side as well as left ec2 flank pain. Patient reports that the pain has been ongoing and worsening for the past several days, states that there is no specific alleviating or exacerbating factors. Denies any nausea or vomiting reports that she has some increasing urinary frequency. Patient reports some vaginal discharge that she describes as thick and white. Reports history of BV. Patient reports also possible STI concern.. 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 - Social history:: Smoking status: Patient denies any tobacco usage or history of. ROS: 10:21 Constitutional: as per hpi ec2 Exam: 10:21 Constitutional: GEN: NAD Head: atraumatic Eyes: EOMI Ears: External ears are ec2 normal. CV: regular rate LUNGS: no respiratory distress ABD: non-distended, soft, nontender, no guarding, left CVA TTP SKIN: no evidence of rashes MSK: no evidence of trauma NEURO: moves all extremities equally Vital Signs: 09:41 BP 142 / 83; Pulse 100; Resp 16; Temp 98.2(O); Pulse Ox 100% on R/A; Weight 59.87 kg; hb Height 5 ft. 2 in. ; Pain 8/10; 11:52 BP 116 / 68; Pulse 74; Resp 18; Pulse Ox 100% ; mb9 13:06 BP 110 / 72; Pulse 70; Resp 16; Pulse Ox 100% on R/A; mb9 09:41 Body Mass Index 24.14 (59.87 kg, 157.48 cm) hb 09:41 Pain Scale: Adult hb MDM: 09:40 Patient medically screened. ec2 10:20 ED course: Patient arrives today for evaluation of abdominal pain and flank pain. ec2 Examination remarkable for abdominal findings as noted above. Will obtain lab work, urine studies, CT imaging. Currently considered UTI, STI, pyelonephritis, diverticulitis.. 10:21 Data reviewed: vital signs. ED course: CBC is reassuring, urine is pertinent for ec2 bacteriuria, negative . Pending CT imaging and the rest of the lab work. Of note patient did decide for empiric antibiotic therapy given vaginal discharge and concern for STI. . 10:52 ED course: Metabolic profile is reassuring, lipase within normal ranges. CT imaging ec2 shows no acute process, physiologic pelvic free fluid noted. . 12:58 ED course: Pelvic examination performed under nurse supervision, no marked discharge ec2 appreciated, no significant TTP noted. Will discharge home with empiric antibiotic therapy for STI. Return precautions given.. 05/30 09:46 Order name: CBC with Diff; Complete Time: 10:21 ec2 05/30 09:46 Order name: CMP; Complete Time: 10:51 ec2 05/30 09:46 Order name: Lipase; Complete Time: 10:51 ec2 05/30 09:46 Order name: Test, Urine; Complete Time: 10:21 ec2 05/30 09:46 Order name: Urinalysis w/ reflexes; Complete Time: 10:21 ec2 05/30 09:46 Order name: GC (Harvey/Chl) Probe VAGINAL (Do not order if pt is under 13, order Culture ec2 instead) 05/30 09:46 Order name: Wet Prep; Complete Time: 11:36 ec2 05/30 09:46 Order name: CT Abd/Pelvis - IV Contrast Only; Complete Time: 10:51 ec2 05/30 09:46 Order name: IV Saline Lock; Complete Time: 10:19 ec2 05/30 09:46 Order name: Labs collected and sent; Complete Time: 10:19 ec2 05/30 11:15 Order name: Setup-Pelvic Exam; Complete Time: 12:09 ec2 Administered Medications: 10:05 Drug: TORadol - Ketorolac IVP 15 mg IVP once Route: IVP; Site: right antecubital; mb9 12:09 Follow up: Response: No adverse reaction mb9 10:05 Drug: NS 0.9% IV 1000 ml IV at 1 bolus Per protocol; 1000 mL bolus Route: IV; Rate: 1 mb9 bolus; Site: right antecubital; 13:06 Follow up: Response: No adverse reaction; IV Status: Completed infusion mb9 10:08 Drug: Ondansetron IVP 4 mg IVP once; over 2 minutes Route: IVP; Site: right antecubital;mb9 12:09 Follow up: Response: No adverse reaction mb9 10:19 Not Given (Physician Discretion): ns 0.9% 1000 ml IV at 1 bolus Per protocol; 1000 mL mb9 bolus 10:36 Drug: Rocephin (cefTRIAXone) IM 500 mg IM once Route: IM; Site: right gluteus; mb9 12:09 Follow up: Response: No adverse reaction mb9 Disposition Summary: 05/30/23 12:58 Discharge Ordered Notes: Location: Home ec2 Condition: Stable ec2 Diagnosis - Pelvic and perineal pain ec2 Followup: ec2 - With: Private Physician - When: - Reason: Recheck today's complaints Discharge Instructions: - Discharge Summary Sheet ec2 - Pelvic Pain, Female ec2 Forms: - Medication Reconciliation Form ec2 - Thank You Letter ec2 - Antibiotic Education ec2 - Prescription Opioid Use ec2 - Patient Portal Instructions ec2 - Leadership Thank You Letter ec2 Prescriptions: - Doxycycline Hyclate 100 mg Oral tablet - take 1 tablet ORAL route every 12 hours; 14 tablet; Refills: 0, Product ec2 Selection Permitted Signatures: Dispatcher [employer] EDMedina Hudson RN RN hb Breneman, Mary Beth RN RN mb9 Negro Asencio MD MD ec2 Corrections: (The following items were deleted from the chart) 10:23 10:21 ED course: Patient arrives today for evaluation of abdominal pain and flank pain. ec2 Examination remarkable for abdominal findings as noted above. Will obtain lab work, urine studies, CT imaging. Currently considered UTI, STI, pyelonephritis, diverticulitis.. ec2
[2023-05-30 14:52] VITALS: BP 110/72; TEMP 98.2; O2SAT 100
[2023-06-02 03:35] LABS: C.trachomatis RNA,TMA Not Detected (Not Detected)
== END ==
LOC: ER 09:28
DX: R10.2 Pelvic and perineal pain (principal)
CPT/HCPCS: 36415; 74177; 80053; 81001; 81025; 83690; 85025; 87210; 87490; 87590; 96361; 96372; 96374; 96375; 99284; J2001; J2405; J7030; Q9967

== ENCOUNTER 2023-10-15 12:56 | Emergency (ER) | payer OTHER, SELFPAY ==
[2023-10-15] MEDS ORDERED: NA CHLORIDE 0.9% 1,000 ML ONE (13:04)
[2023-10-15] MEDS ORDERED: LORazepam 2 MG/ML VIAL ONE (13:04)
[2023-10-15 13:30] LABS: Absolute Eosinophils 0.1 K/uL (0-0.5); Absolute Lymphocytes (CBC) 3.9 K/uL (0.7-4.9); Absolute Monocytes 0.8 K/uL (0.1-1.3); Absolute Neutrophil 5.2 K/uL (1.8-8.0); Basophils % 0.3 % (0-1.3); Eosinophils % 0.6 % (0-4.4); Hematocrit 43.4 % (36.0-45.0); Hemoglobin 14.8 g/dL (12.0-15.0); MCH 32.1 pg (27.0-35.0); MCHC 34.1 g/dL (32.0-36.0); Monocytes % 7.9 % (3.3-12.3); Neutrophils % 52.2 % (41.7-73.7); Nucleated Red Blood Cells % 0.1 % (0-0); Platelets 218 thou/uL (152-406); RBC Red Blood Cell Count 4.62 M/uL (3.86-4.86)
[2023-10-15 13:32] LABS: PT Prothrombin Time 11.6 SECONDS (9.5-12.5); PTT, Activated Partial Thromb 30.7 SECONDS (24.3-36.9); Protime INR 1.06
[2023-10-15 14:00] LABS: ALT/SGPT 22 U/L (13-56); Albumin 4.3 g/dL (3.4-5.0); Albumin/Globulin Ratio 1.2 (1.1-1.8); Alkaline Phosphatase 55 U/L (45-117); Anion Gap 6.6 mEq/L (5.0-15.0); BUN Blood Urea Nitrogen 11 mg/dL (7-18); Bicarbonate 25 mEq/L (21-32); Bilirubin Total 0.5 mg/dL (0.2-1.0); Globulin 3.7 g/dL (2.3-3.5); Glomerular Filtration Rate 76 ml/min (=/>90); Glucose Level 109 mg/dL (74-106); Potassium 3.6 mEq/L (3.5-5.1); Sodium Level 135 mEq/L (136-145)
[2023-10-15 14:07] LABS: AST/SGOT < 10 U/L (15-37); Bilirubin Direct < 0.2 mg/dL (0-0.2); Bilirubin Indirect, Calculated 0.3 mg/dL (0.2-0.8)
--- NOTE | 2023-10-15 14:23 | RAD REPORT ---
EXAM DESCRIPTION: CT - Head Brain Wo Cont - 10/15/2023 2:02 pm CLINICAL HISTORY: Seizure COMPARISON: none TECHNIQUE: Computed axial tomography of the head was obtained. IV contrast was not requested. All CT scans are performed using dose optimization technique as appropriate and may include automated exposure control or mA/KV adjustment according to patient size. FINDINGS: An intracranial bleed is not seen The ventricles are normal in caliber No significant hypodense areas within the brain visualized No extra-axial fluid collection is noted. Fluid within the sinuses/ mastoids is not seen IMPRESSION: No acute intracranial abnormality is seen If patient's symptoms persist MRI of the brain would be recommended
[2023-10-15 15:12] LABS: Specific Gravity 1.006 (1.005-1.030)
[2023-10-15 15:15] LABS: Urine Culture Reflex Order NOT NEEDED
[2023-10-15 15:16] LABS: Specific Gravity 1.006 (1.005-1.030); Sqamous Epithelial <5 /HPF (None Seen); Urine Bacteria <20 /HPF (<20); Urine Bilirubin NEGATIVE (Negative); Urine Blood Negative (Negative); Urine Clarity Turbid (Clear); Urine Color Colorless (Yellow); Urine Glucose NEGATIVE (Negative); Urine Ketones NEGATIVE (Negative); Urine Microscopic Reflex YN ORDER UMIC; Urine Nitrite NEGATIVE (Negative); Urine Protein NEGATIVE (Negative); Urine RBC <5 /HPF (None Seen); Urine Urobilinogen Normal (Normal); Urine WBC None Seen /HPF (<5)
[2023-10-15 15:18] LABS: Barbiturates NEGATIVE (NEGATIVE); Benzodiazepines POSITIVE (NEGATIVE); Cocaine NEGATIVE (NEGATIVE); METHAMPHETAM NEGATIVE (NEGATIVE); Methadone NEGATIVE (NEGATIVE); Opiates NEGATIVE (NEGATIVE); Phencyclidine NEGATIVE (NEGATIVE); THC Cannibis POSITIVE (NEGATIVE)
--- NOTE | 2023-10-15 15:23 | ER ---
Nurse's Notes [facility] Name: Sirena Miller Age: 33 yrs Sex: Female : 1990 Arrival Date: 10/15/2023 Time: 12:56 Bed [id number] Private MD: Diagnosis: Anxiety, THC abuse Presentation: 10/14 13:04 Chief complaint: Spouse and/or significant other states: we were driving and she iw started shaking uncontrollably , she has anxiety and she took her alprazolam today . pt states she has been under a lot of stress lately. Coronavirus screen: At this time, the client does not indicate any symptoms associated with coronavirus-19. Ebola Screen: Patient negative for fever greater than or equal to 101.5 degrees Fahrenheit, and additional compatible Ebola Virus Disease symptoms Patient denies exposure to infectious person. Patient denies travel to an Ebola-affected area in the 21 days before illness onset. No symptoms or risks identified at this time. Initial Sepsis Screen: Does the patient meet any 2 criteria? No. Patient's initial sepsis screen is negative. Does the patient have a suspected source of infection? No. Patient's initial sepsis screen is negative. Risk Assessment: Do you want to hurt yourself or someone else?. 13:04 Method Of Arrival: Wheelchair iw 13:04 Acuity: AUREA 2 iw 15:00 Onset of symptoms was October 15, 2023. mb9 Historical: - Allergies: 13:05 PENICILLINS; iw 13:05 Zoloft; iw - PMHx: 13:05 Asthma; iw - PSHx: 13:05 tubal; iw - Immunization history:: Adult Immunizations up to date. - Infectious Disease History:: Denies. - Social history:: Smoking status: Reported history of juuling and/or vaping. Screenin:08 [facility] ED Fall Risk Assessment (Adult) History of falling in the last 3 months, mb9 including since admission No falls in past 3 months (0 pts) Confusion or Disorientation No (0 pts) Intoxicated or Sedated No (0 pts) Impaired Gait No (0 pts) Mobility Assist Device Used No (0 pt) Altered Elimination No (0 pt) Score/Fall Risk Level 0 - 2 = Low Risk Oriented to surroundings, Maintained a safe environment, Educated pt \T\ family on fall prevention, incl call for assistance when getting out of bed. Abuse screen: Denies threats or abuse. Nutritional screening: No deficits noted. Tuberculosis screening: No symptoms or risk factors identified. Assessment: 13:07 General: Appears uncomfortable, Behavior is cooperative, anxious, crying. Pain: Denies mb9 pain. Neuro: Level of Consciousness is awake, alert, obeys commands, Oriented to person, place, time, situation, Appropriate for age. Cardiovascular: Heart tones S1 S2 present Patient's skin is warm and dry. Rhythm is sinus tachycardia. Respiratory: Airway is patent Respiratory effort is even, unlabored, Respiratory pattern is regular, symmetrical, Breath sounds are clear bilaterally. GI: Abdomen is flat, non-distended, Reports nausea. : No signs and/or symptoms were reported regarding the genitourinary system. EENT: No signs and/or symptoms were reported regarding the EENT system. Derm: Skin is pink, warm \T\ dry. Musculoskeletal: Range of motion: intact in all extremities. 14:00 Reassessment: Patient appears in no apparent distress at this time. Patient and/or mb9 family updated on plan of care and expected duration. Pain level reassessed. Patient is alert, oriented x 3, equal unlabored respirations, skin warm/dry/pink. Patient states feeling better. Patient states symptoms have improved. 15:00 Reassessment: Patient and/or family updated on plan of care and expected duration. Pain mb9 level reassessed. Patient is alert, oriented x 3, equal unlabored respirations, skin warm/dry/pink. Patient states feeling better. Patient states symptoms have improved. 15:35 Reassessment: Reassessment: pt and family at bedside speaking to ER directorFátima. mb9 Vital Signs: 13:08 BP 137 / 108; Pulse 102; Resp 25; Pulse Ox 100% on R/A; ld1 14:15 BP 129 / 99; Pulse 95; Resp 18; Pulse Ox 100% on R/A; ld1 15:36 BP 132 / 91; Pulse 82; Resp 18; Pulse Ox 100% on R/A; ld1 Yovanny Coma Score: 13:09 Eye Response: spontaneous(4). Motor Response: obeys commands(6). Verbal Response: mb9 oriented(5). Total: 15. ED Course: 12:58 Patient arrived in ED. mg5 13:00 Kimberly Crystal, RN is Primary Nurse. mb9 13:01 Chiquita Solorzano MD is Attending Physician. sp3 13:05 Triage completed. iw 13:06 Arm band placed on. mb9 13:06 Initial lab(s) drawn, by me, sent to lab. EKG done, by ED staff, reviewed by Chiquita Solorzano MD. Inserted saline lock: 18 gauge in right antecubital area, using aseptic technique. 13:08 Placed in gown. Bed in low position. Call light in reach. Side rails up X 1. Provided mb9 Education on: press call light if needing anything. Client placed on continuous cardiac and pulse oximetry monitoring. NIBP monitoring applied. game warden on. Door closed. Noise minimized. Warm blanket given. Pillow given. 13:08 Seizure precautions initiated. mb9 13:09 No provider procedures requiring assistance completed. mb9 13:58 Patient requests pain medication. mb9 14:01 Head Brain Wo Cont In Process Unspecified. EDMS 15:35 IV discontinued, pt took IV out herself. mb9 16:28 Primary Nurse role handed off by Kimberly Crystal, MARJORIE iw Administered Medications: 13:08 Drug: Ativan IVP 2 mg IVP once Route: IVP; Site: right antecubital; ld1 16:43 Follow up: Response: No adverse reaction kb3 13:08 Drug: NS 0.9% IV 1000 ml IV at 1 bolus Per protocol; 1000 mL bolus Route: IV; Rate: 1 ld1 bolus; Site: right antecubital; 16:43 Follow up: Response: No adverse reaction; IV Status: Completed infusion; IV Intake: kb3 1000ml Medication: 13:08 VIS not applicable for this client. mb9 Intake: 16:43 IV: 1000ml; Total: 1000ml. kb3 Outcome: 15:22 Discharge ordered by MD. sp3 15:36 Discharged to home ambulatory, ld1 15:36 Condition: stable 15:36 Discharge instructions given to patient, Instructed on discharge instructions, follow up and referral plans. Demonstrated understanding of instructions, follow-up care, 15:36 Patient left the ED. ld1 16:43 Patient left the ED. iw Signatures: Dispatcher [employer] Kina Dean RN RN iw Darlene Castillo RN RN ld1 Chiquita Solorzano MD MD sp3 Fátima Davis RN RN kb3 Kimberly Crystal RN RN mb9 Shanthi Finch mg5 Corrections: (The following items were deleted from the chart) 15:46 15:36 IV discontinued, intact, bleeding controlled, No redness/swelling at site. ld1 mb9
--- NOTE | 2023-10-15 15:23 | EDPHYS ---
Physician Documentation [facility] Name: Sirena Miller Age: 33 yrs Sex: Female : 1990 Arrival Date: 10/15/2023 Time: 12:56 Bed [id number] Private MD: ED Physician Chiquita Solorzano HPI: 10/14 13:48 This 33 yrs old Female presents to ER via Wheelchair with complaints of Anxiety and sp3 possible seizure. 13:51 33-year-old female with history of asthma presents to the ED with chief complaint sp3 anxiety, "not feeling right, and I started shaking while I was driving. Patient pulled over where her boyfriend/significant other took over driving and brought her here. No loss of consciousness. Boyfriend states that "her eyes rolled back into her head". Patient was lucid the entire time. She currently denies any other symptoms including headache, facial pain, neck pain, chest pain, shortness of breath, abdominal pain, vomiting, diarrhea, rash, syncope, drug use, alcohol use, OTC or herbal substance use, or any other signs or symptoms on ROS at this time.. Historical: - Allergies: 13:05 PENICILLINS; iw 13:05 Zoloft; iw - PMHx: 13:05 Asthma; iw - PSHx: 13:05 tubal; iw - Immunization history:: Adult Immunizations up to date. - Infectious Disease History:: Denies. - Social history:: Smoking status: Reported history of juuling and/or vaping. ROS: 13:52 Constitutional: Negative for fever, chills, and weight loss, Eyes: Negative for injury, sp3 pain, redness, and discharge, ENT: Negative for injury, pain, and discharge, Neck: Negative for injury, pain, and swelling, Cardiovascular: Negative for chest pain, palpitations, and edema, Respiratory: Negative for shortness of breath, cough, wheezing, and pleuritic chest pain, Abdomen/GI: Negative for abdominal pain, nausea, vomiting, diarrhea, and constipation, Back: Negative for injury and pain, MS/Extremity: Negative for injury and deformity, Allergy/Immunology: Negative for hives, rash, and allergies, Endocrine: Negative for neck swelling, polydipsia, polyuria, polyphagia, and marked weight changes, Hematologic/Lymphatic: Negative for swollen nodes, abnormal bleeding, and unusual bruising, 13:52 All other systems are negative, Exam: 13:52 Constitutional: This is a well developed, well nourished patient who is awake, alert, sp3 and in no acute distress. Head/Face: Normocephalic, atraumatic. Eyes: Pupils equal round and reactive to light, extra-ocular motions intact. Lids and lashes normal. Conjunctiva and sclera are non-icteric and not injected. Cornea within normal limits. Periorbital areas with no swelling, redness, or edema. ENT: Nares patent. No nasal discharge, no septal abnormalities noted. External auditory canals are clear. Oropharynx with no redness, swelling, or masses, exudates, or evidence of obstruction, uvula midline. Mucous membranes moist. Neck: Trachea midline, no thyromegaly or masses palpated, and no cervical lymphadenopathy. Supple, full range of motion without nuchal rigidity, or vertebral point tenderness. No Meningismus. Chest/axilla: Normal chest wall appearance and motion. Nontender with no deformity. No lesions are appreciated. Cardiovascular: Regular rate and rhythm with a normal S1 and S2. No gallops, murmurs, or rubs. Normal PMI, no JVD. No pulse deficits. Respiratory: Lungs have equal breath sounds bilaterally, clear to auscultation and percussion. No rales, rhonchi or wheezes noted. No increased work of breathing, no retractions or nasal flaring. Abdomen/GI: Soft, non-tender, with normal bowel sounds. No distension or tympany. No guarding or rebound. No evidence of tenderness throughout. Back: No spinal tenderness. No costovertebral tenderness. Full range of motion. Skin: Warm, dry with normal turgor. Normal color with no rashes, no lesions, and no evidence of cellulitis. MS/ Extremity: Pulses equal, no cyanosis. Neurovascular intact. Full, normal range of motion. Psych: Awake, alert, with orientation to person, place and time. Behavior, mood, and affect are within normal limits. 13:52 Neuro: Patient very anxious and shaking but no neurological deficits. Normal neurological exam otherwise including cranial nerves, gait, motor, sensory, proprioception., 13:54 ECG was reviewed by the Attending Physician. EKG demonstrates sinus tachycardia at 104 sp3 bpm with normal intervals, normal QRS, normal axis, normal ST's ST segments without evidence of acute ischemia. Vital Signs: 13:08 BP 137 / 108; Pulse 102; Resp 25; Pulse Ox 100% on R/A; ld1 14:15 BP 129 / 99; Pulse 95; Resp 18; Pulse Ox 100% on R/A; ld1 15:36 BP 132 / 91; Pulse 82; Resp 18; Pulse Ox 100% on R/A; ld1 Yovanny Coma Score: 13:09 Eye Response: spontaneous(4). Motor Response: obeys commands(6). Verbal Response: mb9 oriented(5). Total: 15. MDM: 13:01 Patient medically screened. sp3 13:53 Data reviewed: vital signs, nurses notes, lab test result(s), EKG, radiologic studies. sp3 ED course: 33-year-old female who presents with anxiety and shaking. Differential diagnosis includes anxiety, electrolyte abnormality, and a very low possibility of seizure. Clinically have ruled out CVA/TIA spectrum, sepsis, shock, NE, SI/HI, psychosis, or any other critical process at this time. Disposition pending workup and patient course with probable discharge if patient is improved. She received Ativan IV. Workup will include laboratory values, urine analysis, UDS, CT scan of the head.. 15:21 ED course: Patient symptoms improved after intervention with medication. CT scan of the sp3 head and remainder of workup is negative. Patient's urine drug screen is positive for benzodiazepine which she received in the ED as well as THC. We will discharge her home at this time.. 10/14 13:04 Order name: Acetaminophen; Complete Time: 14:45 3 10/14 13:04 Order name: Basic Metabolic Panel; Complete Time: 14:45 3 10/14 13:04 Order name: CBC with Diff; Complete Time: 14:45 3 10/14 13:04 Order name: ETOH Level; Complete Time: 14:45 3 10/14 13:04 Order name: Hepatic Function; Complete Time: 14:45 3 10/14 13:04 Order name: PT-INR; Complete Time: 14:45 3 10/14 13:04 Order name: Test, Urine; Complete Time: 15:21 3 10/14 13:04 Order name: Ptt, Activated; Complete Time: 14:45 sp3 10/14 13:04 Order name: Salicylate; Complete Time: 14:45 sp3 10/14 13:04 Order name: Urinalysis w/ reflexes sp3 10/14 13:04 Order name: Urine Drug Screen; Complete Time: 15:21 sp3 10/14 14:01 Order name: Head Brain Wo Cont; Complete Time: 14:45 EDMS 10/14 13:04 Order name: EKG; Complete Time: 13:04 sp3 10/14 13:04 Order name: EKG - Nurse/Tech; Complete Time: 13:08 sp3 10/14 13:04 Order name: IV Saline Lock; Complete Time: 13:08 sp3 10/14 13:04 Order name: Labs collected and sent; Complete Time: 13:08 sp3 Administered Medications: 13:08 Drug: Ativan IVP 2 mg IVP once Route: IVP; Site: right antecubital; ld1 16:43 Follow up: Response: No adverse reaction kb3 13:08 Drug: NS 0.9% IV 1000 ml IV at 1 bolus Per protocol; 1000 mL bolus Route: IV; Rate: 1 ld1 bolus; Site: right antecubital; 16:43 Follow up: Response: No adverse reaction; IV Status: Completed infusion; IV Intake: kb3 1000ml Disposition Summary: 10/15/23 15:22 Discharge Ordered Notes: Location: Home sp3 Condition: Stable sp3 Diagnosis - Anxiety, THC abuse sp3 Followup: sp3 - With: Private Physician - When: Upon discharge from the Emergency Department - Reason: Continuance of care Discharge Instructions: - Discharge Summary Sheet sp3 - Panic Attack sp3 Forms: - Medication Reconciliation Form sp3 - Antibiotic Education sp3 - Prescription Opioid Use sp3 - Patient Portal Instructions sp3 - Leadership Thank You Letter sp3 Signatures: Dispatcher [employer] EDMS Kina Lynch RN RN iw Darlene Castillo RN RN ld1 Chiquita Solorzano MD MD sp3 Kimberly Crystal RN RN mb9 Fátima Davis RN kb3 Corrections: (The following items were deleted from the chart) 14:01 13:51 Head Brain W/ Wo Con+CT.RAD.BRZ ordered. EDMS EDMS
[2023-10-15 16:37] VITALS: BP 132/91; O2SAT 100
--- NOTE | 2023-10-17 16:57 | EKG ---
Test Date: 2023-10-15 Test Time: 13:04:14 Planner/Scheduler: MB MEASUREMENT RESULTS: Intervals: Rate: 104 MN: 124 QRSD: 66 QT: 320 QTc: 420 [place]: P: 84 MN: 124 QRS: 81 T: 75 INTERPRETIVE STATEMENTS: Sinus tachycardia Right atrial enlargement Borderline ECG No previous ECG available for comparison Electronically Signed On 10-17-23 16:50:28 CDT by Chapin Bailon
== END 2023-10-15 16:43 | disposition home or self-care (01) ==
LOC: ER 12:56
DX: F41.9 Anxiety disorder, unspecified (principal); F12.10 Cannabis abuse, uncomplicated; J45.909 Unspecified asthma, uncomplicated; F17.290 Nicotine dependence, other tobacco product, uncomplicated; Z88.0 Allergy status to penicillin; Z88.8 Allergy status to other drugs, medicaments and biological substances
CPT/HCPCS: 36415; 70450; 80048; 80076; 80143; 80179; 80307; 81001; 81025; 82077; 85025; 85610; 85730; 93005; 96361; 96374; 99285; J7030